=== PATIENT | female | born 1990 | race African-American/Black ===

== ENCOUNTER 2019-02-08 15:33 | Emergency (ER) | payer SELFPAY ==
[~2019-02-08] VITALS: Ht 175.3 cm; Wt 68.0 kg
[2019-02-08 16:35] VITALS: BP 130/87
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
[2019-02-08] MEDS ORDERED: LIDOCAINE 1% Multi-Dose 20 ML VIAL. INJ ONE (17:30)
--- NOTE | 2019-02-08 17:36 | RAD ---
Three-view right hand radiographs 02/08/2019 CLINICAL HISTORY: Laceration to right hand. PA, lateral and oblique digital radiographs of the right hand were obtained. No fracture or dislocation right hand is seen. No radiopaque foreign body is noted. IMPRESSION: No fracture or dislocation of the right hand is seen. Electronically signed by: Frankie Little MD (02/08/2019 5:33 PM) [facility]
[2019-02-08] MEDS ORDERED: CEPH-264 PO (18:44)
[2019-02-08] MEDS ORDERED: NEOMY/BACITR/POLYMYXIN OINT PACKET. TP ONE (19:15)
== END 2019-02-08 19:00 | disposition home or self-care (01) ==
LOC: ER 15:33
DX: S61.216A Laceration without foreign body of right little finger without damage to nail, initial encounter (principal); X99.8XXA Assault by other sharp object, initial encounter; Y93.89 Activity, other specified; Y92.009 Unspecified place in unspecified non-institutional (private) residence as the place of occurrence of the external cause; Y99.8 Other external cause status
CPT/HCPCS: 12001; 73130; 99284

== ENCOUNTER 2020-11-17 20:56 | Emergency (ER) | payer SELFPAY ==
[~2020-11-17] VITALS: Ht 175.3 cm; Wt 81.8 kg
[~2020-11-17 20:56] MED LIST: CEPH-264 PO; cefTRIAXone IM 500 MG VIAL. IM ONE
[2020-11-17 21:10] VITALS: BP 132/81
[2020-11-17 21:15] LABS: BILIRUBIN,URINE NEGATIVE (NEG); CLARITY,URINE CLEAR; COLOR,URINE YELLOW; NITRITE,URINE NEGATIVE (NEG); PH,URINE 6.5 (<5.0-8.0); PROTEIN,URINE NEGATIVE (NEG-TRACE)
[2020-11-17 21:22] LABS: BACTERIA,URINE 0 /HPF (0-FEW); WBC,URINE OCC /HPF (0-4)
[2020-11-17] MEDS ORDERED: AZITHROMYCIN 250 MG TABLET. PO ONE (21:30)
[2020-11-17] MEDS ORDERED: LIDOCAINE WITH 8.4% SOD BICARB 3 ML DISP.SYRIN. INJ ONE (21:45)
[2020-11-17] MEDS ORDERED: DOXY100T PO (22:27)
[2020-11-17] MEDS ORDERED: HYDR-2761 PO (22:27)
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
== END 2020-11-17 22:37 | disposition home or self-care (01) ==
LOC: ER 20:56
DX: L02.219 Cutaneous abscess of trunk, unspecified (principal); Z87.891 Personal history of nicotine dependence; Z20.2 Contact with and (suspected) exposure to infections with a predominantly sexual mode of transmission
CPT/HCPCS: 10060; 81001; 81025; 87491; 87591; 96372; 99284; J0696; J3490; Q0111